=== PATIENT | female | born 1960 | race African-American/Black ===

== ENCOUNTER 2020-01-01 11:07 | Emergency (ER) | payer OTHER ==
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
[2020-01-01 13:03] VITALS: BP 148/67
== END 2020-01-01 13:00 | disposition home or self-care (01) ==
LOC: ER 11:07
DX: S06.0X9A Concussion with loss of consciousness of unspecified duration, initial encounter (principal); W22.09XA Striking against other stationary object, initial encounter
CPT/HCPCS: 70450; 99283